=== PATIENT | female | born 1960 | race Caucasian/White ===

== ENCOUNTER → 2017-03-13 | Outpatient (CLI) | payer BC ==
--- NOTE | ~2017-03-13 | MR17 ---
[facility] A Service of [facility] & [facility] [place] RADIOLOGY TEXT RESULTS PATIENT: RADHA WU LOCATION: CEEG : 58 UNIT #: [id number] AGE: [address]: NATALIA GEORGE SEX: F ORDER DR: [id number] [facility] [address] [place], [place] [address] [id number] O MR#: [id number] #: [id number] NAME: RADHA WU : 1960 SEX: F STUDY DATE/TIME: 03/13/2017 9:23 UNIT: CEEG ROOM: STUDY DESCRIPTION: MR Brain WWo Contrast Attending Physician: Natalia George M.D. Referring Physician: Natalia George M.D. Ordering Physician: Chari Not Listed Primary Care Physician: Katerina Tobin [facility] REPORT This report is preliminary unless electronic signature is present. EXAM Brain MRI with and without HISTORY Confusion and memory loss. 56-year-old female; history of multiple medical problems including diabetes, melanoma, migraine, memory loss, hyperlipidemia. Confusion and memory problems since November 2016. No known trauma. TECHNIQUE MRI of the brain was performed prior to and following intravenous administration of 18 mL of MultiHance. COMPARISON I have no comparison study of the brain. FINDINGS There is no evidence for a recent ischemic insult on the diffusion series. Midline structures are unremarkable. There is no extraaxial fluid collection. The major intracranial flow voids are maintained. The mastoid air cells are clear. The visualized paranasal sinuses show only minor mucosal thickening and no air-fluid level. There is no MRI evidence for intracranial hemorrhage. There is no extraaxial fluid collection. There is no significant atrophy for age group. There is no hydrocephalus. Blanca-white junction is relatively well-maintained for age group. A few small foci of signal abnormality are seen at the bilateral external capsules anteriorly within the range expected for age group, probably due to minor small vessel disease, in light of diabetes history. Following contrast administration, there is no pathologic intracranial enhancement. There is no intracranial mass lesion. There is nothing to suggest intracranial metastatic disease. [facility] A Service of [facility] & [facility] [place] RADIOLOGY TEXT RESULTS PATIENT: RADHA WU LOCATION: [facility] : 58 UNIT #: [id number] AGE: [address]: NATALIA GEORGE SEX: F ORDER DR: IMPRESSION 1. No evidence for intracranial metastatic disease. 2. No recent ischemic insult. Minor probable sequelae of small vessel disease noted within the range expected for age group. Dictated by... Gloria Otero M.D. THIS IS AN ELECTRONICALLY VERIFIED REPORT Gloria Otero M.D. at 03/13/2017 2:30 PM HOMA/nicola TD: 03/13/2017 14:14 JOB #: [id number] MRI CENTER REPORT Page 1 of 1 COPY
[2017-03-13 15:21] LABS: POC - CREATININE 0.84 mg/dL (0.44-1.03); POC - GFR >60.0 mL/min (>60)
== END | disposition home or self-care (01) ==
LOC: CEEG 07:03
PROVIDERS: Internal Medicine Sleep Medicine
DX: R41.0 Disorientation, unspecified (principal); R41.3 Other amnesia
CPT/HCPCS: 70553; 82565; 95816; A9577